=== PATIENT | female | born 1935 | race Caucasian/White ===

== ENCOUNTER 2017-04-21 10:24 | Day surgery (SDC) | payer MEDICARE, MEDICAID ==
[~2017-04-21 10:24] MED LIST: FISH OIL1000 MG; HYDROCODONE-APA1 TA1 PO; NORVASC 2.5MG.2.5 MG PO; PREMARIN 0.60.625 MG
--- NOTE | 2017-04-21 11:18 | Operative Note ---
Upper GI Endoscopy Procedure date: 04/21/17 Date of : 33 Procedure:Upper GI Endoscopy Esophagogastroduodenoscopy with cold biopsies and TTS balloon dilation Indications: Mrs. Contreras is an 82-year-old female with epigastric abdominal soreness and some aching. She has noted mild bloating, belching and occasional nausea. She has had occasional regurgitation. She reports no heartburn, reflux or weight loss. She does have some early satiety. She reports no melena. She does have some intermittent lower retrosternal dysphagia. The patient does state that her last colonoscopy was 5-6 years ago and she did have some precancerous polyps removed. Performing Provider: Johny Wayne MD Referring Provider: Naomie Fan PA-C Sedation: Fentanyl 100 mg IV/Versed 5 mg IV Procedure: Prior to the procedure, a history and physical exam was performed, and patients medications and allergies were reviewed. The risks and benefits of the procedure and the sedation options and risks were discussed with the patient. All questions were answered and informed consent was obtained. The patient was brought to the procedure room. Patient identification and proposed procedure were verified by the physician and the nurse. The patient was placed in a left lateral decubitus position and the scope was passed under direct vision. Throughout the procedure, the patient's blood pressure, pulse, and oxygen saturations were monitored continuously. The endoscope was introduced through the mouth, and advanced to the second part of duodenum. The upper GI endoscopy was accomplished without difficulty. The patient tolerated the procedure well. Findings: The scope was passed directly into the upper esophagus and advanced to the third portion of the duodenum. The post bulbar duodenum and duodenal bulb were normal with normal mucosa and conniventes. The scope was withdrawn through a normal duodenal bulb and pylorus into the stomach. There was evidence of mild reactive gastritis of the antrum and body of the stomach. There was also a couple of fundic gland polyps which were removed. The remainder of the antrum, body and fundus of the stomach were grossly normal. Upon retroflexion there was a 2-3 cm hiatal hernia. 2 biopsies were taken in the antrum and along the lesser curvature for histology. The scope was then withdrawn into the esophagus. There was a distal Schatzki's ring. There was no evidence of reflux esophagitis or Ortez's. There were tertiary contractions and mild esophageal dysmotility. The remainder of the esophageal mucosa was normal. Immediate complications: None EBL (ml): 0 Impression: 1. Nonerosive gastroesophageal reflux disease with mild esophageal dysmotility and 3 cm hiatal hernia 2. Schatzki's ring dilated to 20 mm 3. Mild linear reactive gastritis 4. Gastric fundic gland polyps Recommendations: Will discuss additional treatment options which may include dietary measures and fiber bowel regimen. I will follow up the biopsies. at [id number]
[2017-04-21 15:22] VITALS: BP 126/64
== END 2017-04-21 12:20 | disposition home or self-care (01) ==
LOC: SDC 10:24
PROVIDERS: Internal Medicine Gastroenterology
PROC: 0DB78ZX Excision of Stomach, Pylorus, Via Natural or Artificial Opening Endoscopic, Diagnostic (ICD-10-PCS; principal; 2017-04-21 11:30)
DX: R10.13 Epigastric pain (principal); K31.7 Polyp of stomach and duodenum; K44.9 Diaphragmatic hernia without obstruction or gangrene; K22.2 Esophageal obstruction; K22.4 Dyskinesia of esophagus; K29.60 Other gastritis without bleeding
CPT/HCPCS: C1726

== ENCOUNTER 2017-06-16 13:30 | Day surgery (SDC) | payer MEDICARE, MEDICAID ==
--- NOTE | 2017-06-16 15:20 | Operative Note ---
Colonoscopy (Tone) Procedure date: 06/16/17 Date of : 33 Procedure:Colonoscopy Colonoscopy with cold snare polypectomy Indications: Mrs. Contreras is an 82-year-old female who had seen me for EGD on April 21, 2017 because of her upper abdominal soreness and aching with dyspepsia. She had mild bloating, burping, regurgitation and nausea. The patient was doing better on omeprazole and Carafate but has had some ongoing epigastric burning discomfort. The patient is here for screening colonoscopy. She did have a colonoscopy 5-6 years ago which time colon polyps were removed. She reports regular bowel function. She reports no rectal bleeding, weight loss, change in her bowel habits or family history of colon cancer. Performing Provider: Johny Wayne MD Referrring Provider: Naomie Fan PA-C Sedation: Fentanyl 150 mg IV/Versed 9 mg IV Procedure: Prior to the procedure, a history and physical exam was performed, and patient medications and allergies were reviewed. The risks and benefits of the procedure and the sedation options and risks were discussed with the patient. All questions were answered and informed consent was obtained. Patient identification and proposed procedure were verified by the physician and the nurse. The patient was placed in a left lateral decubitus position. Throughout the procedure, the patient's blood pressure, pulse, and oxygen saturations were monitored continuously. Findings: On digital rectal examination there was normal rectal tone. There were no external hemorrhoids. The colonoscope was introduced through the anal canal to the rectum and advanced to the cecum. The ileocecal valve and appendiceal orifice were identified. The scope was advanced a short distance into the ileum which appeared grossly normal. The scope was then withdrawn into the colon. There were 7 colon polyps identified in the cecum 2, ascending 1, transverse 2 and sigmoid 2. These ranged in size from 4-8 mm and were all removed via cold snare polypectomy. There were scattered diverticuli throughout the descending and sigmoid colon (LEFT colon). The rectum itself was normal. Upon retroflexion within the rectum there were grade 1 internal hemorrhoids. Impressions: 1. Colonic polyps 7 2. Left-sided diverticulosis 3. Grade 1 internal hemorrhoids Recommendations: I am not convinced that we will need to continue surveillance colonoscopies based upon her her age and will discuss this with patient and family. The patient does have functional dyspepsia and we will discuss additional treatment options. Complications: None EBL (ml): 0 at [id number]
[2017-06-16 16:27] VITALS: BP 121/56
== END 2017-06-16 16:10 | disposition home or self-care (01) ==
LOC: SDC 13:30
PROVIDERS: Internal Medicine Gastroenterology
PROC: 0DBN8ZX Excision of Sigmoid Colon, Via Natural or Artificial Opening Endoscopic, Diagnostic (ICD-10-PCS; 2017-06-16)
PROC: 0DBL8ZX Excision of Transverse Colon, Via Natural or Artificial Opening Endoscopic, Diagnostic (ICD-10-PCS; 2017-06-16)
PROC: 0DBK8ZX Excision of Ascending Colon, Via Natural or Artificial Opening Endoscopic, Diagnostic (ICD-10-PCS; 2017-06-16)
PROC: 0DBH8ZX Excision of Cecum, Via Natural or Artificial Opening Endoscopic, Diagnostic (ICD-10-PCS; principal; 2017-06-16 14:30)
DX: K63.5 Polyp of colon (principal); K57.30 Diverticulosis of large intestine without perforation or abscess without bleeding; K64.0 First degree hemorrhoids; Z86.010 Personal history of colon polyps